=== PATIENT | male | born 1965 | race Hispanic/Latino ===

== ENCOUNTER → 2019-02-19 | Outpatient (CLI) | payer OTHER | END | disposition home or self-care (01) | LOC: OIH 11:05 | PROVIDERS: ATTEND Family Medicine | DX: M19.012 Primary osteoarthritis, left shoulder (principal) | CPT/HCPCS: 73030 ==

== ENCOUNTER 2019-05-22 17:00 | Emergency (ER) | payer MEDICAID, OTHER | END 2019-05-22 17:23 | disposition home or self-care (01) | LOC: EDH 17:00 | DX: G89.29 Other chronic pain (principal); M54.9 Dorsalgia, unspecified; M19.90 Unspecified osteoarthritis, unspecified site; Z72.0 Tobacco use ==